=== PATIENT | male | born 1985 | race Hispanic/Latino ===

== ENCOUNTER 2018-06-12 10:28 | Emergency (ER) | payer OTHER ==
[2018-06-12 10:31] VITALS: BMI 26.8
[2018-06-12] MEDS ORDERED: Sodium Chloride 0.9% 1,000 ML IV ONE (10:38)
--- NOTE | 2018-06-12 11:10 | RAD ---
Date of service: 06/12/2018 HISTORY: syncope COMPARISON: No prior. TECHNIQUE: Chest PA and lateral FINDINGS: LUNGS: No active pulmonary disease. PLEURA: No significant pleural effusion identified. No pneumothorax apparent. CARDIOVASCULAR: No aortic atherosclerotic calcification present. Normal cardiac size. No pulmonary vascular congestion. OSSEOUS STRUCTURES: No significant abnormalities. VISUALIZED UPPER ABDOMEN: Normal. OTHER FINDINGS: None. IMPRESSION: No active disease.
--- NOTE | 2018-06-12 11:23 | CT ---
Date of service: 06/12/2018 PROCEDURE: CT HEAD WITHOUT CONTRAST. HISTORY: syncope COMPARISON: None available. TECHNIQUE: Axial computed tomography images were obtained through the head/brain without intravenous contrast. Radiation dose: Total exam DLP = 789.91 mGy-cm. This CT exam was performed using one or more of the following dose reduction techniques: Automated exposure control, adjustment of the mA and/or kV according to patient size, and/or use of iterative reconstruction technique. FINDINGS: HEMORRHAGE: No intracranial hemorrhage. BRAIN: No mass effect or edema. No atrophy or chronic microvascular ischemic changes. VENTRICLES: Unremarkable. No hydrocephalus. CALVARIUM: Unremarkable. PARANASAL SINUSES: Unremarkable as visualized. No significant inflammatory changes. MASTOID AIR CELLS: Unremarkable as visualized. No inflammatory changes. OTHER FINDINGS: None. IMPRESSION: No acute intracranial pathology.
--- NOTE | 2018-06-12 11:25 | ED PDOC ---
Syncope/Near Syncope/Dizziness Time Seen by Provider: 06/12/18 10:39 Chief Complaint (Nursing): Dizziness/Lightheaded Chief Complaint (Provider): Syncopal Episode History Per: Patient History/Exam Limitations: no limitations Onset/Duration Of Symptoms: Hrs (one) Current Symptoms Are (Timing): Better Number Of Syncopal Episodes: 1 Activity At Onset Of Symptoms: Standing, Had Just Stood up Associated Symptoms Preceding Syncopal Episode: Lightheadedness Seizure Or Post-ictal Symptoms: None Possible Causative Factor(s): Lightheaded W/Standing (Pt presents to the ED via EMS after suffering a syncopal episode with LOC while at home this morning; pt had just risen from his bed and was urinating when he became dizzy and passed out falling backward onto the wall; pt has suffered one previous episode after standing at the eye doctors' office three months ago. Pt has experineced heart palpitations and was seen by a route driver in [facility] several weeks ago. he has been diagnosed with a holter monitor and was cleared by that route driver. Pt denies NVD an dfever) Fall Associated With With Symptoms: Yes Severity: Mild Past Medical History Reviewed: Historical Data, Nursing Documentation, Vital Signs Vital Signs: Last Vital Signs Temp 98 F 06/12/18 10:32 Pulse 74 06/12/18 10:32 Resp 20 06/12/18 10:32 BP 109/55 L 06/12/18 10:32 Pulse Ox 98 06/12/18 10:32 - Family History Family History: States: Unknown Family Hx - Allergies Allergies/Adverse Reactions: Allergies Allergy/AdvReac Type Severity Reaction Status Date / Time No Known Allergies Allergy Verified 06/12/18 10:31 Review of Systems ROS Statement: Except As Marked, All Systems Reviewed And Found Negative Neurological: Positive for: Dizziness Physical Exam - Reviewed Nursing Documentation Reviewed: Yes Vital Signs Reviewed: Yes - Physical Exam Appears: Positive for: Well, Non-toxic, No Acute Distress. Negative for: Uncomfortable Head Exam: Positive for: ATRAUMATIC, NORMAL INSPECTION Skin: Positive for: Normal Color, Warm, Dry. Negative for: Diaphoresis, Pallor, Rash Eye Exam: Positive for: Normal appearance, EOMI, PERRL. Negative for: Nystagmus, Periorbital swelling, Periorbital tenderness ENT: Positive for: Normal ENT Inspection Neck: Positive for: Normal, Painless ROM, Supple. Negative for: Decreased ROM Cardiovascular/Chest: Positive for: Regular Rate, Rhythm. Negative for: Bradycardia, Tachycardia Respiratory: Positive for: Normal Breath Sounds. 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 Negative for: Motor/Sensory Deficits - Laboratory Results Result Diagrams: 06/12/18 11:20 06/12/18 11:20 - ECG ECG: Positive for: Interpreted By Me, Viewed By Me Interpretation Of Abn EKG: Sinus Arrhythmia Rate: 68 O2 Sat by Pulse Oximetry: 98 Medical Decision Making Medical Decision Making: I: Syncope due to Cardiac Sinus Arrhythmia P: sycope workup CBC CMP UA CXR CT head Trop EKG Disposition - Clinical Impression Clinical Impression: Dizziness, Arrhythmia - Patient ED Disposition Is Patient to be Admitted: No Doctor Will See Patient In The: Office Counseled Patient/Family Regarding: Studies Performed, Diagnosis, Need For Followup - Disposition Referrals: Benjamin Hernandez MD [Staff Provider] - Disposition: Routine/Home Disposition Time: 13:50 Condition: FAIR Instructions: Vertigo (a Type of Dizziness) (DC), Dizziness, Nonvertigo, (DC) Forms: [employer] ([place]ian)
[2018-06-12 11:31] LABS: BASO % 0.4 % (0.0-2.0); EOS # 0.1 K/uL (0.0-0.7); EOS % 1.6 % (0.0-4.0); HEMOGLOBIN 15.3 g/dL (12.0-18.0); LYMPH % 16.1 % (20.0-40.0); MEAN CELL VOLUME 86.8 fl (80.0-94.0); MEAN CORPUSCULAR HEMOGLOBIN 29.1 pg (27.0-31.0); MEAN CORPUSCULAR HGB CONC 33.6 g/dL (33.0-37.0); MEAN PLATELET VOLUME 9.7 fl (7.2-11.7); MONO # 0.8 K/uL (0.0-0.8); MONO % 12.8 % (0.0-10.0); NEUT # 4.2 K/uL (1.8-7.0); NEUT % 69.1 % (50.0-75.0); RBC 5.25 Mil/uL (4.40-5.90); RED CELL DISTRIBUTION WIDTH 12.9 % (11.5-14.5); WHITE BLOOD COUNT 6.1 K/uL (4.8-10.8)
[2018-06-12 11:42] LABS: ALB/GLOB RATIO 1.6 (1.0-2.1); ALBUMIN 4.3 g/dL (3.5-5.0); ALT/SGPT 28 U/L (21-72); AST/SGOT 24 U/L (17-59); BLOOD UREA NITROGEN 18 mg/dl (9-20); CALCIUM 9.5 mg/dL (8.4-10.2); GFR NON-AFRICAN AMERICAN > 60
[2018-06-12 11:59] LABS: INR 1.1; PROTHROMBIN TIME 12.9 Seconds (9.8-13.1)
[2018-06-12 12:23] VITALS: RESP 18
[2018-06-12 12:27] LABS: URINE BILIRUBIN NEGATIVE (NEGATIVE); URINE BLOOD NEGATIVE (NEGATIVE); URINE CLARITY SLIGHTY-CLOUDY (Clear); URINE COLOR YELLOW (YELLOW); URINE GLUCOSE (UA) NEG (NEGATIVE); URINE LEUKOCYTE ESTERASE NEG Leu/uL (Negative); URINE PROTEIN NEGATIVE (NEGATIVE); URINE UROBILINOGEN 0.2-1.0 mg/dL (0.2-1.0)
[2018-06-12 12:42] LABS: PHENCYCLIDINE, UR NEGATIVE (NEGATIVE)
[2018-06-12 12:44] LABS: BARBITURATES, UR NEGATIVE (NEGATIVE); BENZODIAZEPINES, UR NEGATIVE (NEGATIVE); OPIATES, UR NEGATIVE (NEGATIVE)
[2018-06-12 13:58] VITALS: BP 115/70; PULSE 80; TEMP 98.2; O2SAT 96
--- NOTE | 2018-06-12 16:52 | CARD ---
APPROVED REPORT Date of service: 06/12/2018 EKG Measurement Heart [id number] <Conclusion> Sinus rhythm with marked sinus arrhythmia Otherwise normal ECG
== END 2018-06-12 13:58 | disposition home or self-care (01) ==
LOC: H.ER 10:28
DX: I49.9 Cardiac arrhythmia, unspecified (principal); R42 Dizziness and giddiness
CPT/HCPCS: 70450; 71046; 80053; 80320; 80324; 80345; 80346; 80349; 80353; 80358; 80361; 81003; 82948; 83992; 84484; 85025; 85610; 87070; 87430; 87804; 93005; 99285; J7030